=== PATIENT | male | born 1985 | race Two or more races ===

== ENCOUNTER 2019-05-19 17:56 | Emergency (ER) | payer OTHER ==
[~2019-05-19] VITALS: Ht 185.4 cm; Wt 152.0 kg
[2019-05-19 18:02] VITALS: BP 136/67
[2019-05-19] MEDS ORDERED: KETOROLAC TROMETHAMINE INJ 60 MG/2 ML VIAL IM ONE ×2 (18:30→18:32)
[2019-05-19] MEDS ORDERED: HYDROCODONE/APAP 10/325MG 1 EA TABLET PO ONE (18:30)
[2019-05-19] MEDS ORDERED: HYDROCODONE/APAP 10/325MG 1 EA TABLET ONE (18:32)
== END 2019-05-19 18:39 | disposition home or self-care (01) ==
LOC: ER 17:56
DX: M54.5 Low back pain (principal); G89.29 Other chronic pain; Z60.2 Problems related to living alone
CPT/HCPCS: 96372; 99283; J1885

== ENCOUNTER 2022-11-14 18:22 | Emergency (ER) | payer OTHER ==
[~2022-11-14] VITALS: Ht 177.8 cm; Wt 136.1 kg
[2022-11-14 18:53] VITALS: BP 123/81
[2022-11-14] MEDS ORDERED: MUPI22OI2 TP (20:28)
[2022-11-14] MEDS ORDERED: CEPH500C2 PO (20:28)
--- NOTE | 2022-11-14 20:37 | NUR ---
Patient discharged to home in stable condition. Written and verbal after care instructions given. Patient verbalizes understanding of instruction. Pt ambulatory with a steady gait
== END 2022-11-14 20:38 | disposition home or self-care (01) ==
LOC: ER 18:36
DX: L01.00 Impetigo, unspecified (principal); K12.0 Recurrent oral aphthae; Z60.2 Problems related to living alone; Z79.899 Other long term (current) drug therapy

== ENCOUNTER 2022-11-23 16:09 | Emergency (ER) | payer OTHER ==
[~2022-11-23] VITALS: Ht 182.9 cm; Wt 131.1 kg
[~2022-11-23 16:09] MED LIST: CEPH500C2 PO; MUPI22OI2 TP
[2022-11-23 16:20] VITALS: BP 142/88
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
--- NOTE | 2022-11-23 17:01 | NUR ---
CALLED RADIOLOGY FOR XRAY; WILL TAKE PT PER SOUND TECHNICIAN
[2022-11-23] MEDS ORDERED: BACI30OI9 TP (18:10)
[2022-11-23] MEDS ORDERED: IBUP-1955 PO (18:10)
--- NOTE | 2022-11-23 18:10 | NUR ---
TECH AT BEDSIDE FOR WOUND CARE.
--- NOTE | 2022-11-23 18:29 | NUR ---
Patient discharged to home in stable condition. Written and verbal after care instructions given. Patient verbalizes understanding of instruction.
== END 2022-11-23 18:30 | disposition home or self-care (01) ==
LOC: ER 16:14
DX: S60.141A Contusion of right ring finger with damage to nail, initial encounter (principal); Z60.2 Problems related to living alone; Z79.899 Other long term (current) drug therapy; W20.8XXA Other cause of strike by thrown, projected or falling object, initial encounter; Y93.89 Activity, other specified; Y92.89 Other specified places as the place of occurrence of the external cause; Y99.8 Other external cause status
CPT/HCPCS: 99284; 11740; 73140; A6403

== ENCOUNTER 2023-07-30 17:19 | Emergency (ER) | payer MEDICAID, OTHER ==
[~2023-07-30] VITALS: Ht 180.3 cm; Wt 137.0 kg
[~2023-07-30 17:19] MED LIST changes: +BACI30OI9 TP; +IBUP-1955 PO
[2023-07-30] MEDS ORDERED: MUPI22OI2 TP (17:59)
[2023-07-30] MEDS ORDERED: IBUP-1953 PO (17:59)
[2023-07-30 18:16] VITALS: BP 131/78; TEMP 98; O2SAT 99
== END 2023-07-30 18:17 | disposition home or self-care (01) ==
LOC: ER 17:24
DX: L01.00 Impetigo, unspecified (principal); M79.602 Pain in left arm; Z79.899 Other long term (current) drug therapy; Z60.2 Problems related to living alone